=== PATIENT | female | born 1945 | race Caucasian/White ===

== ENCOUNTER 2016-06-27 14:39 | Inpatient (IN) | payer MEDICARE ==
[~2016-06-27] VITALS: Ht 157.5 cm; Wt 51.9 kg
[2016-07-01] MEDS ORDERED: GABA300C5 PO (11:23)
[2016-07-01] MEDS ORDERED: VITA400C59 CHEW (11:23)
[2016-07-01] MEDS ORDERED: FURO20TA PO (11:23)
[2016-07-01] MEDS ORDERED: HYDR-3516 PO (11:23)
[2016-07-01] MEDS ORDERED: LISI-515 PO (11:23)
[2016-07-04] VITALS (8 sets, daily range): BP systolic 85–114; BP diastolic 39–60; PULSE 56–74; RESP 16–18; TEMP 96.8–98.2; O2SAT 99–100
[2016-07-04] MEDS ORDERED: SODIUM CHLORIDE 0.9% IV SCH (06:00)
[2016-07-04] MEDS ORDERED: ceFAZolin 2 GM PREMIX 50 ML IV SCH (06:00)
[2016-07-04] MEDS ORDERED: TRANEXAMIC ACID IV SCH (06:00)
[2016-07-04] MEDS ORDERED: VANCOMYCIN 1000 MG/NS 250 ML (for <70 kg) IV SCH ×2 (06:00)
[2016-07-04] MEDS: CHLORHEXIDINE GLUCONATE 4% SOLN 120 ML BTL TOP SCH (06:00)
[2016-07-04] MEDS: POVIDONE IODINE 7.5% SCRUB 118 ML BOTTLE TOP SCH (06:15)
[2016-07-04] MEDS ORDERED: METOPROLOL TARTRATE 25 MG TAB PO PRN (06:15)
[2016-07-04] MEDS ORDERED: INSULIN HUMAN REGULAR 1,000 UNITS/10 ML VIAL SQ PRN (06:15)
[2016-07-04] MEDS ORDERED: GENTAMICIN SULFATE 80 MG/2 ML VIAL ONE (06:31)
[2016-07-04] MEDS ORDERED: ACETAMINOPHEN 1000 MG/100 ML VIAL IV ONE (06:55)
[2016-07-04] MEDS ORDERED: FAMOTIDINE 20 MG/2 ML VIAL ONE (06:55)
[2016-07-04] MEDS ORDERED: EXPAREL PERI-ARTICULAR INJECTION (TOTAL VOL. 60 ML) P-ARTICULR SCH ×2 (07:00)
[2016-07-04] MEDS ORDERED: TRANEXAMIC PERI-ARTICULAR 3,000 MG/NS 100 ML P-ARTICULR SCH ×2 (07:00)
[2016-07-04] MEDS ORDERED: SODIUM CHLORID 0.9% 500 ML IV SCH (07:00)
[2016-07-04] MEDS ORDERED: LACTATED RINGER'S 1000 ML IV SCH (07:00)
--- NOTE | 2016-07-04 07:14 | EKG ---
Date Performed: 07/04/2016 Time Performed: 06:34:17 PTAGE: 71 years EKG: Sinus rhythm NONSPECIFIC ST & T-WAVE ABNORMALITY BORDERLINE ECG NO PREVIOUS TRACING DOCTOR: Skinny Poe Interpretating Date/Time 07/04/2016 07:14:22
[2016-07-04] MEDS ORDERED: HYDR-3288 PO (07:19)
[2016-07-04] MEDS ORDERED: ENOX40P SQ (07:20)
[2016-07-04] MEDS ORDERED: BISACODYL 10 MG SUPP PR PRN (07:30)
[2016-07-04] MEDS ORDERED: SODIUM CHLORIDE 0.9% FLUSH 5 ML FLUSH IVF PRN (07:30)
[2016-07-04] MEDS ORDERED: ONDANSETRON HCL 4 MG/2 ML VIAL IVP PRN (07:30)
[2016-07-04] MEDS ORDERED: ZOLPIDEM TARTRATE 5 MG TAB PO PRN (07:30)
[2016-07-04] MEDS ORDERED: MORPHINE SULFATE 4 MG/ML INJ IV PUSH PRN (07:30)
[2016-07-04] MEDS ORDERED: NALOXONE HCL 0.4 MG/ML AMP IV PRN (07:30)
[2016-07-04] MEDS ORDERED: ACETAMINOPHEN/HYDROcodone 325 MG/10 MG TAB PO PRN (07:30)
[2016-07-04] MEDS ORDERED: diphenhydrAMINE HCL 50 MG/ML VIAL IV PRN (07:30)
[2016-07-04] MEDS ORDERED: MAGNESIUM HYDROXIDE SUSP 30 ML CUP PO PRN (07:30)
[2016-07-04] MEDS ORDERED: ALUMINUM/MAGNESIUM/SIMETH 30 ML CUP PO PRN (07:30)
[2016-07-04] MEDS ORDERED: FUROSEMIDE 20 MG TAB PO SCH (09:00)
[2016-07-04] MEDS: SODIUM CHLORIDE 0.9% FLUSH 5 ML FLUSH IVF SCH ×2 (09:00→20:56)
[2016-07-04] MEDS ORDERED: Post-op Orders (for Pharmacy) MISC XX ONE (09:11)
[2016-07-04] MEDS ORDERED: *morphine SULFATE 8 MG/ML PERIprocedure ONLY ONE ×3 (09:21→09:43)
[2016-07-04] MEDS ORDERED: fentaNYL CITRATE 250 MCG/5 ML AMP ONE (09:22)
[2016-07-04] MEDS ORDERED: MIDAZOLAM HCL 2 MG/2 ML VIAL ONE (09:22)
[2016-07-04] MEDS ORDERED: MORPHINE SULFATE 4 MG/ML INJ ONE (09:23)
[2016-07-04] MEDS: SODIUM CHLOR 0.9% 1000 ML INJ 1,000 ML IV SCH ×2 (09:28→17:17)
[2016-07-04] MEDS ORDERED: DO NOT ADM ANY ANTICOAGULANT DRUGS XX PRN (09:30)
[2016-07-04] MEDS ORDERED: *hydrOXYzine 25 MG VIAL PERIprocedural Use ONLY IM ONE (09:42)
--- NOTE | 2016-07-04 10:37 | RADRPT ---
EXAM DATE/TIME: 07/04/2016 09:52 [facility] COMPARISON: No previous studies available for comparison. INDICATIONS : Post op right hip. MEDICAL HISTORY : None. SURGICAL HISTORY : None. ENCOUNTER: Initial ACUITY: 1 day PAIN SCORE: 8/10 LOCATION: Right Hip. FINDINGS: The patient is status post a total hip arthroplasty with a bipolar prosthesis. Prosthesis is well-sea philippe. Alignment is anatomic. A fracture is not appreciated. CONCLUSION: Anatomic alignment. Alejandro Lyles MD FACR Board Certified Radiologist. This report was verified electronically.
[2016-07-04] MEDS: ACETAMINOPHEN/HYDROcodone 325 MG/10 MG TAB PO PRN ×2 (11:02→15:12)
[2016-07-04] MEDS ORDERED: ePHEDrine/NS 25 MG/5 ML SYR IV ONE (12:00)
[2016-07-04] MEDS ORDERED: PROPOFOL 200 MG/20 ML AMP IV ONE (12:00)
[2016-07-04] MEDS ORDERED: NEOSTIGMINE 3 MG/3 ML SYR IV ONE (12:00)
[2016-07-04] MEDS ORDERED: PHENYLEPH/NS 1000 MCG/10 ML SYR IV ONE (12:00)
[2016-07-04] MEDS ORDERED: LACTATED RINGER'S 1000 ML INJ 1,000 ML IV ONE (12:00)
[2016-07-04] MEDS ORDERED: ONDANSETRON HCL 4 MG/2 ML VIAL IV PUSH ONE (12:00)
--- NOTE | 2016-07-04 15:13 | PD.CONS ---
[facility] By Dr. Jacome Reason for Consult Medical management Primary Care Physician Jcarlos Bobby M.D. Diagnoses: History of Present Illness The patient is a 71-year-old female with past medical history of hypertension who is presenting to the hospital for an elective right hip repair. The patient says that she was dancing a year ago when she fell down and injured her right hip. She has been following with an orthopedic doctor and she was not satisfied with the care so she sought a second opinion. She has had a trial of steroids as well as physical therapy. Her pain medications she has tried include tramadol and hydrocodone. She has been ambulating with a walker. She has been having if occult A going up and down stairs. She decided to get surgery because her symptoms were not improving. The patient's sister also mentions that the patient has had a 15-20 pound weight loss over the past 8 months. The patient says that she has decreased appetite. She says she has been following up with her routine maintenance such as colonoscopy, breast cancer screening and Pap smears. The patient was seen following surgery and she was having some pain and waiting for pain medication. She also mentions that she has had a chronic cough for a long time. Review of Systems Constitutional: COMPLAINS OF: Weight loss, Change in appetite Ears, nose, mouth, throat: DENIES: Odynophagia Respiratory: COMPLAINS OF: Cough Cardiovascular: COMPLAINS OF: Lower Extremity Edema Gastrointestinal: DENIES: Constipation, Diarrhea Neurologic: COMPLAINS OF: Abnormal gait Past Family Social History Allergies: Coded Allergies: No Known Allergies (Unverified , 07/04/16) Past Medical History Hypertension Active Ordered Medications Current Medications Medications (Trade) Dose Ordered Sig/Deyvi Route Start Time Stop Time Status Last Admin (Betadine 7.5% Scrub) 1 applic ONCE TOP 07/04/16 06:00 07/07/16 05:59 07/04/16 06:15 Chlorhexidine Gluconate 1 applic 1 applic ONCE TOP 07/04/16 06:00 07/07/16 05:59 (Cyklokapron Inj/ NS Inj) 107.755 ml @ 200 mls/ hr ONCE IV 07/04/16 06:00 07/05/16 05:59 07/04/16 07:36 (Lasix) 20 mg BID PO 07/04/16 09:00 Hold (Neurontin) 300 mg HS PO 07/04/16 21:00 Lisinopril 20 mg 20 mg HS PO 07/04/16 21:00 (NS 1000 ml Inj) 1,000 ml @ 100 mls/hr Q10H IV 07/04/16 07:17 07/04/16 09:28 (NS Flush) 2 ml UNSCH PRN IVF 07/04/16 07:30 IV Flush 2 ml 2 ml BID IVF 07/04/16 09:00 (Ancef Inj/NS Inj) 100 ml @ 200 mls/hr Q6H IV 07/04/16 12:00 07/05/16 00:29 07/04/16 11:02 (Lovenox Inj) 40 mg Q24H SQ 07/05/16 08:00 07/14/16 08:01 (Morphine Inj) 3 mg Q3H PRN IV PUSH 07/04/16 07:30 (Berne 10-325 Mg) 1 tab Q4H PRN PO 07/04/16 07:30 07/04/16 11:02 (Berne 10-325 Mg) 2 tab Q6H PRN PO 07/04/16 07:30 (Theragran M Tab) 1 tab BID PO 07/05/16 21:00 09/03/16 20:59 (Zofran Inj) 4 mg Q6H PRN IVP 07/04/16 07:30 (Colace) 100 mg BID PO 07/05/16 21:00 (Mag-Al Plus Susp Liq) 30 ml Q6H PRN PO 07/04/16 07:30 (Ambien) 5 mg HS PRN PO 07/04/16 07:30 (Dulcolax Supp) 10 mg DAILY PRN [place] 07/04/16 07:30 (Milk Of Magnesia Liq) 30 ml DAILY PRN PO 07/04/16 07:30 (Narcan Inj) 0.4 mg UNSCH PRN IV 07/04/16 07:30 (Benadryl Inj) 25 mg Q6H PRN IV 07/04/16 07:30 Miscellaneous Information ALL NURSING DEPARTME... UNSCH PRN XX 07/04/16 09:30 07/05/16 09:29 Family History Hypertension Diabetes Social History The patient does not smoke. She drinks 1-2 randi daily. Physical Exam Vital Signs Vital Signs Date Time Temp Pulse Resp B/P Pulse Ox O2 Delivery O2 Flow Rate FiO2 07/04/16 10:50 97.7 56 16 104/55 100 07/04/16 10:15 97.6 59 12 102/58 99 Nasal Cannula 2 07/04/16 10:00 66 10 104/55 99 07/04/16 09:45 66 7 93/52 99 07/04/16 09:30 80 6 111/62 99 Nasal Cannula 2 07/04/16 09:15 97.6 93 10 102/59 97 Nasal Cannula 2 07/04/16 06:16 98.2 74 16 114/59 100 Physical Exam GENERAL: This is a well-nourished, well-developed patient, in no apparent distress. SKIN: No rashes, ecchymoses or lesions. Cool and dry. HEAD: Atraumatic. Normocephalic. No temporal or scalp tenderness. EYES: Pupils equal round and reactive. Extraocular motions intact. No scleral icterus. No injection or drainage. ENT: Nose without bleeding, purulent drainage or septal hematoma. Throat without erythema, tonsillar hypertrophy or exudate. Uvula midline. Airway patent. NECK: Trachea midline. No JVD or lymphadenopathy. Supple, nontender, no meningeal signs. CARDIOVASCULAR: Regular rate and rhythm without murmurs, gallops, or rubs. RESPIRATORY: Clear to auscultation. Breath sounds equal bilaterally. No wheezes , rales, or rhonchi. GASTROINTESTINAL: Abdomen soft, non-tender, nondistended. No hepato-splenomegaly , or palpable masses. No guarding. MUSCULOSKELETAL: Right hip with bandage in place. Some tenderness to palpation. No hematoma noted. No lower extremity edema. NEUROLOGICAL: Awake and alert. Cranial nerves II through XII intact. Motor and sensory grossly within normal limits. Five out of 5 muscle strength in all muscle groups. Normal speech. PSYCH: Mood and affect appropriate. Laboratory Laboratory Tests Test 07/04/16 06:12 Blood Type O POSITIVE Antibody Screen NEGATIVE Blood Bank Comment Imaging Last Impressions Hip and Pelvis X-Ray 07/04/16 0000 Signed Impressions: Service Date/Time: Monday, July 04, 2016 09:52 - CONCLUSION: Anatomic alignment. Alejandro Lyles MD Assessment and Plan Assessment and Plan Severe osteoarthritis Status post right total hip replacement 1/30/17. - Pain control with a bowel regimen. - Physical therapy. - Incentive spirometry. - Anticoagulation and wound care per orthopedic surgery. Hypertension The patient is on lisinopril and furosemide as an outpatient. - Continue lisinopril. Hold Lasix for now. - Vasotec as needed. Weight loss/ cough Over the past 8 months the patient has endorsed a 15-20 pound weight loss. She says she is current with colonoscopy, mammograms and Pap smears. She also has a chronic cough which she has been unable to correlate with an etiology. - Chest x-ray pending. - Check a TSH level. - Start a PPI in case chronic cough is secondary to GERD. - Will likely need further workup as an outpatient. PPx: Per orthopedic surgery. Discussed Condition With Pt, pt's family. Glynn Ravi DO Jul 04, 2016 15:13
[2016-07-04] MEDS ORDERED: ENALAPRILAT 1.25 MG/ML VIAL IV PUSH PRN (15:15)
[2016-07-04] MEDS: SENNOSIDES 8.6 MG TAB PO SCH (15:15)
--- NOTE | 2016-07-04 16:20 | RADRPT ---
EXAM DATE/TIME: 07/04/2016 15:48 [facility] COMPARISON: No previous studies available for comparison. INDICATIONS : Cough. MEDICAL HISTORY : None. SURGICAL HISTORY : hip replacement today ENCOUNTER: Initial ACUITY: 1 day PAIN SCORE: 0/10 LOCATION: Bilateral chest FINDINGS: A single view of the chest demonstrates the lungs to be symmetrically aerated without evidence of mas s, infiltrate or effusion. The cardiomediastinal contours are unremarkable. Osseous structures are intact. CONCLUSION: No acute disease. Jun Ponce MD on July 04, 2016 at 16:18 Board Certified Radiologist. This report was verified electronically.
--- NOTE | 2016-07-04 17:16 | RADRPT ---
EXAM DATE/TIME: 07/04/2016 07:35 [facility] COMPARISON: No previous studies available for comparison. INDICATIONS : Right total anterior hip arthroplasty. OR. MEDICAL HISTORY : None. SURGICAL HISTORY : None. ENCOUNTER: Initial ACUITY: 1 day PAIN SCORE: Non-responsive. LOCATION: Right hip FINDINGS: Matrix views in the OR reveal placement of total hip prosthesis well seated CONCLUSION: Well-seated total hip prosthesis Odell Bo MD on July 04, 2016 at 17:14 Board Certified Radiologist. This report was verified electronically.
[2016-07-04] MEDS: PANTOPRAZOLE SOD 40 MG DELAYED RELEASE TAB PO SCH (18:07)
[2016-07-04] MEDS: GABAPENTIN 300 MG CAP PO SCH (20:57)
[2016-07-04] MEDS ORDERED: LISINOPRIL 20 MG TAB PO SCH (21:00)
[2016-07-05] VITALS (13 sets, daily range): BP systolic 78–152; BP diastolic 46–69; PULSE 69–94; RESP 17–20; TEMP 95.8–100.6; O2SAT 97–100
[2016-07-05] MEDS ORDERED: SODIUM CHLORID 0.9% 500 ML INJ 500 ML IV ONE (01:00)
[2016-07-05] MEDS: ACETAMINOPHEN 325 MG TAB PO PRN ×2 (01:10→06:41)
[2016-07-05 01:42] LABS: AUTOMATED NEUTROPHIL # 6.7 TH/MM3 (1.8-7.7); BASOPHIL % 0.1 % (0.0-2.0); HEMO FLAGS DIFF FINAL; LYMPH % 10.2 % (9.0-44.0); LYMPHOCYTE # 0.9 TH/MM3 (1.0-4.8); MEAN CELL VOLUME 95.6 FL (80.0-100.0); MEAN CORPUSCULAR HGB CONC 34.5 % (32.0-36.0); MONO % 11.6 % (0.0-8.0); NEUT % 78.1 % (16.0-70.0); PLATELET COUNT 179 TH/MM3 (150-450); RED BLOOD COUNT 2.72 MIL/MM3 (4.00-5.30); WHITE BLOOD COUNT 8.5 TH/MM3 (4.0-11.0)
[2016-07-05 01:52] LABS: APTT (PATIENT) 22.6 SEC (24.3-30.1); INTERNATIONAL NORMALIZED RATIO 0.9 RATIO; PROTHROMBIN TIME - PATIENT 10.3 SEC (9.8-11.6)
[2016-07-05 02:12] LABS: ALT (GPT) 40 U/L (10-53); ANION GAP 7 MEQ/L (5-15); AST (GOT) 43 U/L (15-37); BICARBONATE 25.7 MEQ/L (21.0-32.0); BLOOD UREA NITROGEN 21 MG/DL (7-18); CHLORIDE 107 MEQ/L (98-107); GLOMERULAR FILTRATION RATE 36 ML/MIN (>89); POTASSIUM 4.5 MEQ/L (3.5-5.1); SODIUM (NA) 140 MEQ/L (136-145)
[2016-07-05 02:14] LABS: ALKALINE PHOSPHATASE 84 U/L (45-117); TOTAL BILIRUBIN ADULT 0.6 MG/DL (0.2-1.0)
[2016-07-05] MEDS ORDERED: SODIUM CHLOR 0.9% 1000 ML INJ 1,000 ML IV ONE ×2 (03:15→04:30)
[2016-07-05] MEDS: SODIUM CHLOR 0.9% 1000 ML INJ 1,000 ML IV SCH ×2 (03:17→23:17)
[2016-07-05] MEDS: POVIDONE IODINE 7.5% SCRUB 118 ML BOTTLE TOP SCH (03:22)
[2016-07-05] MEDS: CHLORHEXIDINE GLUCONATE 4% SOLN 120 ML BTL TOP SCH (03:35)
[2016-07-05 05:14] LABS: HEMATOCRIT 22.7 % (35.0-46.0); MEAN CELL VOLUME 95.4 FL (80.0-100.0); MEAN CORPUSCULAR HEMOGLOBIN 33.8 PG (27.0-34.0); MEAN CORPUSCULAR HGB CONC 35.4 % (32.0-36.0); PLATELET COUNT 162 TH/MM3 (150-450); RED BLOOD COUNT 2.38 MIL/MM3 (4.00-5.30); RED CELL DISTRIBUTION WIDTH 12.2 % (11.6-17.2); REVIEW FLAG FINAL; WHITE BLOOD COUNT 8.2 TH/MM3 (4.0-11.0)
[2016-07-05] MEDS ORDERED: ACETAMINOPHEN/HYDROcodone 325 MG/5 MG TAB PO PRN (05:15)
--- NOTE | 2016-07-05 05:25 | RADRPT ---
EXAM DATE/TIME: 07/05/2016 04:55 [facility] COMPARISON: CHEST SINGLE AP, July 04, 2016, 15:48. INDICATIONS : Hypertension. MEDICAL HISTORY : None. SURGICAL HISTORY : Right total hip replacement ENCOUNTER: Initial ACUITY: 1 day PAIN SCORE: 7/10 LOCATION: Bilateral chest FINDINGS: A single view of the chest demonstrates the lungs to be symmetrically aerated without evidence of mas s, infiltrate or effusion. The cardiomediastinal contours are unremarkable. Osseous structures are intact. CONCLUSION: No evidence of acute cardiopulmonary disease. Lewis Matias MD on July 05, 2016 at 5:24 Board Certified Radiologist. This report was verified electronically.
[2016-07-05 05:33] LABS: BICARBONATE 24.5 MEQ/L (21.0-32.0); POTASSIUM 4.1 MEQ/L (3.5-5.1)
[2016-07-05] MEDS ORDERED: ENOXAPARIN SODIUM 40 MG/0.4 ML SYRINGE SQ SCH (08:00)
--- NOTE | 2016-07-05 08:25 | PD.ORT.PN ---
Subjective Post Op Day #: 1 Subjective Remarks painful. patient has been hypotensive and has not had pain meds. Objective Vitals Vital Signs Date Time Temp Pulse Resp B/P Pulse Ox O2 Delivery O2 Flow Rate FiO2 07/05/16 05:10 94/64 07/05/16 04:30 92/50 Manual Cuff/Auscultation 07/05/16 04:15 88/50 07/05/16 02:55 78/46 07/04/16 23:58 90/48 07/04/16 23:30 85/50 07/04/16 22:20 92/46 Automatic Cuff 07/04/16 20:00 96.8 70 16 91/39 100 07/04/16 19:16 99 Nasal Cannula 2.00 07/04/16 16:25 98.0 58 18 105/60 99 07/04/16 10:50 97.7 56 16 104/55 100 07/04/16 10:15 97.6 59 12 102/58 99 Nasal Cannula 2 07/04/16 10:00 66 10 104/55 99 07/04/16 09:45 66 7 93/52 99 07/04/16 09:30 80 6 111/62 99 Nasal Cannula 2 07/04/16 09:15 97.6 93 10 102/59 97 Nasal Cannula 2 I/O 07/04/16 07/04/16 07/04/16 07/05/16 07/05/16 07/05/16 07:00 15:00 23:00 07:00 15:00 23:00 Intake Total 1100 ml 660 ml 2141 ml Output Total 350 ml 1100 ml 800 ml Balance 750 ml -440 ml 1341 ml Intake Oral 360 ml 360 ml IV Total 300 ml 1781 ml Other 1100 ml Output Urine Total 1100 ml 800 ml Estimated Blood Loss 150 ml Other 200 ml # Voids 1 # Bowel Movements 0 0 Result Diagram: 07/05/16 0455 07/05/16 0455 Other Results Laboratory Tests Test 07/05/16 01:18 Prothrombin Time 10.3 SEC (9.8-11.6) Prothromb Time International 0.9 RATIO Ratio Imaging Last 24 hours Impressions Chest X-Ray 07/05/16 0000 Signed Impressions: Service Date/Time: Tuesday, July 05, 2016 04:55 - CONCLUSION: No evidence of acute cardiopulmonary disease. Lewis Matias MD Objective Remarks in bed, mild distress due to pain dressing c/d/i mark evans nvi Assessment & Plan Ortho Post Op Day #: 1 Problem List: Assessment and Plan s/p R LAMAR - anterior approach wbat daily dressing changes lovenox hypotensive - has been receiving saline bolus likely needs transfusion d/c planning home with [facility] and pt rx in chart f/up dr. moreno 2 weeks Jus Andre Jul 05, 2016 08:25
--- NOTE | 2016-07-05 08:27 | HHI.DCPOC ---
Discharge Care Plan Diagnosis: (1) Primary localized osteoarthrosis, pelvic region and thigh Your Health Problems Are: Difficulty with ADL Goals to Promote Your Health * To prevent worsening of your condition and complications * To maintain your health at the optimal level Directions to Meet Your Goals Take your medications as prescribed Follow your dietary instruction Follow activity as directed Keep your appointments as scheduled Take your immunizations and boosters as scheduled If your symptoms worsen call your PCP, if no PCP go to Urgent Care Center or Emergency Room Smoking is Dangerous to Your Health. Avoid second hand smoke Call the 24-hour hour crisis hotline for domestic abuse at Jus Andre Jul 05, 2016 08:27
--- NOTE | 2016-07-05 08:27 | HHI.FF ---
Face to Face Verification Diagnosis: (1) Primary localized osteoarthrosis, pelvic region and thigh Physical Therapy Gait training, Safety evaluation, Transfer training, bed to chair Hip: Total hip, Protocol: Right, Progress to weight bearing Right LE Weight Bearing: WB as tolerated Nursing RN: 3 days/week x 2 weeks Nursing: Андрей teaching, Dressing changes Dressing Changes: Daily dressing change I have seen patient Valerie Ojeda on 07/05/16. My clinical findings support the need for the requested home health care services because: Limited ability to care for self High risk of falls I certify that my clinical findings support that this patient is homebound because: Post-op weakness Unsteady gait/balance Jus Andre Jul 05, 2016 08:27
[2016-07-05] MEDS ORDERED: WALKER WHEELS/F1 MIS (08:29)
[2016-07-05] MEDS ORDERED: MISC-163 (08:29)
--- NOTE | 2016-07-05 09:29 | HHI.PR ---
Subjective Remarks The patient said that she had a lot of pain in her right leg because she has been unable to take pain medications. She says that her blood pressure does not tend to run low. She says she has lost about 30 pounds over the past year unintentionally. She states she has no appetite. She endorses a chronic cough for many years. Discussed with nursing. Objective Vitals Vital Signs Date Time Temp Pulse Resp B/P Pulse Ox O2 Delivery O2 Flow Rate FiO2 07/05/16 08:00 98.2 69 20 108/52 100 07/05/16 05:10 94/64 07/05/16 04:30 92/50 Manual Cuff/Auscultation 07/05/16 04:15 88/50 07/05/16 02:55 78/46 07/04/16 23:58 90/48 07/04/16 23:30 85/50 07/04/16 22:20 92/46 Automatic Cuff 07/04/16 20:00 96.8 70 16 91/39 100 07/04/16 19:16 99 Nasal Cannula 2.00 07/04/16 16:25 98.0 58 18 105/60 99 07/04/16 10:50 97.7 56 16 104/55 100 07/04/16 10:15 97.6 59 12 102/58 99 Nasal Cannula 2 07/04/16 10:00 66 10 104/55 99 07/04/16 09:45 66 7 93/52 99 07/04/16 09:30 80 6 111/62 99 Nasal Cannula 2 I/O 07/04/16 07/04/16 07/04/16 07/05/16 07/05/16 07/05/16 07:00 15:00 23:00 07:00 15:00 23:00 Intake Total 1100 ml 660 ml 2141 ml Output Total 350 ml 1100 ml 800 ml Balance 750 ml -440 ml 1341 ml Intake Oral 360 ml 360 ml IV Total 300 ml 1781 ml Other 1100 ml Output Urine Total 1100 ml 800 ml Estimated Blood Loss 150 ml Other 200 ml # Voids 1 # Bowel Movements 0 0 Result Diagram: 07/05/16 0455 07/05/16 0455 Imaging Last Impressions Chest X-Ray 07/05/16 0000 Signed Impressions: Service Date/Time: Tuesday, July 05, 2016 04:55 - CONCLUSION: No evidence of acute cardiopulmonary disease. Lewis Matias MD Hip and Pelvis X-Ray 07/04/16 0000 Signed Impressions: Service Date/Time: Monday, July 04, 2016 09:52 - CONCLUSION: Anatomic alignment. Alejandro Lyles MD Hip X-Ray 07/04/16 0000 Signed Impressions: Service Date/Time: Monday, July 04, 2016 07:35 - CONCLUSION: Well-seated total hip prosthesis Odell Bo MD Objective Remarks GENERAL: This is a well-nourished, well-developed patient, in no apparent distress. SKIN: No rashes, ecchymoses or lesions. Cool and dry. HEAD: Atraumatic. Normocephalic. No temporal or scalp tenderness. EYES: Pupils equal round and reactive. Extraocular motions intact. No scleral icterus. No injection or drainage. ENT: Nose without bleeding, purulent drainage or septal hematoma. Throat without erythema, tonsillar hypertrophy or exudate. Uvula midline. Airway patent. NECK: Trachea midline. No JVD or lymphadenopathy. Supple, nontender, no meningeal signs. CARDIOVASCULAR: Regular rate and rhythm without murmurs, gallops, or rubs. RESPIRATORY: Clear to auscultation. Breath sounds equal bilaterally. No wheezes , rales, or rhonchi. GASTROINTESTINAL: Abdomen soft, non-tender, nondistended. No hepato-splenomegaly , or palpable masses. No guarding. MUSCULOSKELETAL: Right hip with bandage in place. Some tenderness to palpation. No hematoma noted. No lower extremity edema. NEUROLOGICAL: Awake and alert. Cranial nerves II through XII intact. Motor and sensory grossly within normal limits. Five out of 5 muscle strength in all muscle groups. Normal speech. PSYCH: Mood and affect appropriate. Procedures Right hip arthroplasty 07/04/16. Medications and IVs Current Medications Medications (Trade) Dose Ordered Sig/Deyvi Route Start Time Stop Time Status Last Admin (Betadine 7.5% Scrub) 1 applic ONCE TOP 07/04/16 06:00 07/07/16 05:59 07/04/16 06:15 (Hibiclens 4% Top Soln) 1 applic ONCE TOP 07/04/16 06:00 07/07/16 05:59 (Lasix) 20 mg BID PO 07/04/16 09:00 Hold Gabapentin 300 mg 300 mg HS PO 07/04/16 21:00 (NS 1000 ml Inj) 1,000 ml @ 100 mls/hr Q10H IV 07/04/16 07:17 07/05/16 03:17 (NS Flush) 2 ml UNSCH PRN IVF 07/04/16 07:30 (NS Flush) 2 ml BID IVF 07/04/16 09:00 (Theragran M Tab) 1 tab BID PO 07/05/16 21:00 09/03/16 20:59 (Zofran Inj) 4 mg Q6H PRN IVP 07/04/16 07:30 (Colace) 100 mg BID PO 07/05/16 21:00 (Mag-Al Plus Susp Liq) 30 ml Q6H PRN PO 07/04/16 07:30 (Ambien) 5 mg HS PRN PO 07/04/16 07:30 (Dulcolax Supp) 10 mg DAILY PRN [place] 07/04/16 07:30 (Milk Of Magnesia Liq) 30 ml DAILY PRN PO 07/04/16 07:30 (Narcan Inj) 0.4 mg UNSCH PRN IV 07/04/16 07:30 (Benadryl Inj) 25 mg Q6H PRN IV 07/04/16 07:30 Miscellaneous Information ALL NURSING DEPARTME... UNSCH PRN XX 07/04/16 09:30 07/05/16 09:29 (Senokot) 17.2 mg DAILY PO 07/04/16 15:15 (Vasotec Inj) 1.25 mg Q6H PRN IV PUSH 07/04/16 15:15 (Protonix) 40 mg DAILY PO 07/04/16 16:00 07/04/16 18:07 (Ofirmev Inj) 1,000 mg Q8HR IV 07/05/16 10:00 UNV (Roxicodone) 5 mg Q4H PRN PO 07/05/16 09:15 UNV (Lovenox Inj) 40 mg Q24H SQ 07/05/16 15:00 UNV A/P Assessment and Plan Severe osteoarthritis Status post right total hip replacement 07/04/16. - Pain control with a bowel regimen. - Physical therapy. - Incentive spirometry. - Anticoagulation and wound care per orthopedic surgery. Anticoagulation currently on hold in setting of anemia. Hypotension The pt received multiple fluid boluses and has not been able to get pain medications. Normally has hypertension. May be s/t blood loss. - hold lisinopril and Lasix. - IVFs. - sparing use of pain medications. - check a lactic acid level. - blood transfusion. Anemia Hemoglobin has been decreasing following surgery and pt has been hypotensive. - transfuse 2 units 07/05 and follow CBC. - check B12, folate, iron studies and Hemoccult. - holding Lovenox for now. Weight loss/ cough Over the past 8 months the patient has endorsed a 15-20 pound weight loss. She says she is current with colonoscopy, mammograms and Pap smears. She also has a chronic cough which she has been unable to correlate with an etiology. CXR unremarkable. AST mildly elevated. INR WNL. TSH low normal. - Check free T3/T4. - trend LFTs. - Start a PPI in case chronic cough is secondary to GERD. - Will likely need further workup as an outpatient. - consider CT of the chest. LING Improved with IVFs. - continue IVFs and monitor. - avoid nephrotoxic agents. PPx: Per orthopedic surgery. Discharge Planning Awaiting clinical improvement. Glynn Ravi DO Jul 05, 2016 09:29
[2016-07-05] MEDS: SENNOSIDES 8.6 MG TAB PO SCH (10:05)
[2016-07-05] MEDS: PANTOPRAZOLE SOD 40 MG DELAYED RELEASE TAB PO SCH (10:05)
[2016-07-05] MEDS: SODIUM CHLORIDE 0.9% FLUSH 5 ML FLUSH IVF SCH ×2 (10:06→21:49)
[2016-07-05] MEDS: ACETAMINOPHEN 1000 MG/100 ML VIAL IV SCH ×3 (10:06→23:22)
[2016-07-05 10:19] LABS: HEMATOCRIT 24.8 % (35.0-46.0); REVIEW FLAG FINAL
[2016-07-05 10:25] LABS: TRANSFERRIN IRON PROFILE 162 MG/DL (200-360)
[2016-07-05 10:50] LABS: FERRITIN 233 NG/ML (8-252)
[2016-07-05 11:54] LABS: HEMATOCRIT 25.2 % (35.0-46.0); MEAN CELL VOLUME 97.2 FL (80.0-100.0); MEAN CORPUSCULAR HEMOGLOBIN 32.1 PG (27.0-34.0); PLATELET COUNT 170 TH/MM3 (150-450); RED CELL DISTRIBUTION WIDTH 12.2 % (11.6-17.2); REVIEW FLAG FINAL
[2016-07-05 12:32] LABS: FREE T3 1.94 PG/ML (2.18-3.98); FREE T4 1.29 NG/DL (0.76-1.46)
[2016-07-05 13:45] LABS: HEMATOCRIT 24.6 % (35.0-46.0); REVIEW FLAG FINAL
[2016-07-05] MEDS: ENOXAPARIN SODIUM 40 MG/0.4 ML SYRINGE SQ SCH (15:55)
[2016-07-05 16:55] LABS: HEMOGLOBIN A1a 0.9 %; HEMOGLOBIN A1b 0.8 %; HEMOGLOBIN Ao 86.3 %; HEMOGLOBIN F 0.9 %; HEMOGLOBIN LA1C 2.1 %; HEMOGLOBIN P3 5.2 %
[2016-07-05] MEDS: MORPHINE SULFATE 4 MG/ML INJ IV PUSH PRN ×2 (17:09→21:45)
[2016-07-05] MEDS ORDERED: CELE40TA PO (20:53)
[2016-07-05] MEDS: GABAPENTIN 300 MG CAP PO SCH (21:44)
[2016-07-05] MEDS: MULTIVITAMINS/MINERALS THERAPEUTIC TAB PO SCH (21:44)
[2016-07-05] MEDS: DOCUSATE SODIUM 100 MG CAP PO SCH (21:44)
[2016-07-05] MEDS ORDERED: diphenhydrAMINE HCL 25 MG CAP PO ONE (23:15)
[2016-07-05] MEDS ORDERED: ACETAMINOPHEN 325 MG TAB PO ONE (23:15)
[2016-07-06] VITALS (14 sets, daily range): BP systolic 101–133; BP diastolic 57–69; PULSE 67–98; RESP 16–20; TEMP 95.6–100.1; O2SAT 96–100
[2016-07-06 02:33] LABS: BICARBONATE 24.2 MEQ/L (21.0-32.0)
[2016-07-06 02:36] LABS: INDIRECT BILIRUBIN 0.6 MG/DL (0.0-0.8); TOTAL BILIRUBIN ADULT 0.8 MG/DL (0.2-1.0)
[2016-07-06] MEDS: POVIDONE IODINE 7.5% SCRUB 118 ML BOTTLE TOP SCH (04:35)
[2016-07-06] MEDS: CHLORHEXIDINE GLUCONATE 4% SOLN 120 ML BTL TOP SCH (05:08)
[2016-07-06 07:33] LABS: HEMATOCRIT 32.5 % (35.0-46.0); MEAN CELL VOLUME 93.4 FL (80.0-100.0); MEAN CORPUSCULAR HEMOGLOBIN 31.9 PG (27.0-34.0); MEAN CORPUSCULAR HGB CONC 34.2 % (32.0-36.0); PLATELET COUNT 148 TH/MM3 (150-450); RED BLOOD COUNT 3.49 MIL/MM3 (4.00-5.30); RED CELL DISTRIBUTION WIDTH 14.4 % (11.6-17.2); REVIEW FLAG FINAL; WHITE BLOOD COUNT 8.1 TH/MM3 (4.0-11.0)
--- NOTE | 2016-07-06 08:01 | PD.ORT.PN ---
Subjective Post Op Day #: 2 Subjective Remarks feeling much better this morning. 1 unit PRBC transfused yesterday. Objective Vitals Vital Signs Date Time Temp Pulse Resp B/P Pulse Ox O2 Delivery O2 Flow Rate FiO2 07/06/16 06:24 97.4 87 16 120/64 100 07/06/16 06:22 97.4 82 19 120/64 07/06/16 04:00 96.3 72 16 106/62 100 07/06/16 01:55 99.2 75 19 105/60 99 07/06/16 01:50 97.7 74 18 113/64 99 07/06/16 01:45 98.2 67 20 101/63 100 07/06/16 00:47 99.3 07/06/16 00:30 99.8 07/06/16 00:13 100.1 95 17 133/69 96 07/05/16 22:30 100.6 93 20 141/66 99 07/05/16 19:00 99.3 94 17 152/69 100 07/05/16 16:00 95.8 72 20 105/53 97 07/05/16 13:50 98.5 77 19 108/56 100 07/05/16 13:35 97.6 81 20 97/55 100 07/05/16 12:00 97.6 81 20 97/55 100 07/05/16 10:29 99 Nasal Cannula 2.00 07/05/16 08:00 98.2 69 20 108/52 100 I/O 07/05/16 07/05/16 07/05/16 07/06/16 07/06/16 07/06/16 07:00 15:00 23:00 07:00 15:00 23:00 Intake Total 2141 ml 400 ml 603 ml Output Total 800 ml 1000 ml 600 ml Balance 1341 ml -600 ml 3 ml Intake Oral 360 ml 400 ml 250 ml IV Total 1781 ml Packed Cells 353 ml Output Urine Total 800 ml 1000 ml 600 ml # Bowel Movements 0 0 0 Result Diagram: 07/06/16 0715 07/06/16 0201 Imaging Last 24 hours Impressions Chest X-Ray 07/05/16 0000 Signed Impressions: Service Date/Time: Tuesday, July 05, 2016 04:55 - CONCLUSION: No evidence of acute cardiopulmonary disease. Lewis Matias MD Objective Remarks in bed, nad incision no erythema, no drainage neg homans nvi Assessment & Plan Ortho Post Op Day #: 2 Problem List: Assessment and Plan s/p R LAMAR - anterior approach wbat daily dressing changes lovenox transfused 1 unit PRBC yesterday d/c planning home with [facility] and pt - ortho stable and cleared if cleared by med rx in chart f/up dr. moreno 2 weeks Jus Andre Jul 06, 2016 08:01
[2016-07-06] MEDS: SODIUM CHLORIDE 0.9% FLUSH 5 ML FLUSH IVF SCH ×2 (09:00→20:33)
[2016-07-06] MEDS: SENNOSIDES 8.6 MG TAB PO SCH (09:00)
[2016-07-06] MEDS: MULTIVITAMINS/MINERALS THERAPEUTIC TAB PO SCH ×2 (09:34→20:31)
[2016-07-06] MEDS: DOCUSATE SODIUM 100 MG CAP PO SCH ×2 (09:34→20:31)
[2016-07-06] MEDS: PANTOPRAZOLE SOD 40 MG DELAYED RELEASE TAB PO SCH (09:34)
[2016-07-06] MEDS: SODIUM CHLOR 0.9% 1000 ML INJ 1,000 ML IV SCH ×2 (09:37→19:17)
[2016-07-06] MEDS ORDERED: POLYETHYLENE GLYCOL 17 GM PKG PO ONE (16:15)
--- NOTE | 2016-07-06 16:15 | HHI.PR ---
Subjective Remarks The patient was resting comfortably in bed. She said that her pain was controlled. She denies any shortness of breath. Her family was at the bedside. Her goal is to go home instead of rehabilitation. Discussed with nursing. Objective Vitals Vital Signs Date Time Temp Pulse Resp B/P Pulse Ox O2 Delivery O2 Flow Rate FiO2 07/06/16 11:58 96.9 80 16 115/62 100 07/06/16 11:25 98 Nasal Cannula 2.00 07/06/16 08:00 97.9 83 18 103/57 98 07/06/16 06:24 97.4 87 16 120/64 100 07/06/16 06:22 97.4 82 19 120/64 07/06/16 04:00 96.3 72 16 106/62 100 07/06/16 01:55 99.2 75 19 105/60 99 07/06/16 01:50 97.7 74 18 113/64 99 07/06/16 01:45 98.2 67 20 101/63 100 07/06/16 00:47 99.3 07/06/16 00:30 99.8 07/06/16 00:13 100.1 95 17 133/69 96 07/05/16 22:30 100.6 93 20 141/66 99 07/05/16 19:00 99.3 94 17 152/69 100 I/O 07/05/16 07/05/16 07/05/16 07/06/16 07/06/16 07/06/16 07:00 15:00 23:00 07:00 15:00 23:00 Intake Total 2141 ml 400 ml 603 ml Output Total 800 ml 1000 ml 600 ml Balance 1341 ml -600 ml 3 ml Intake Oral 360 ml 400 ml 250 ml IV Total 1781 ml Packed Cells 353 ml Output Urine Total 800 ml 1000 ml 600 ml # Bowel Movements 0 0 0 Result Diagram: 07/06/16 0715 07/06/16 0201 Imaging Last Impressions Chest X-Ray 07/05/16 0000 Signed Impressions: Service Date/Time: Tuesday, July 05, 2016 04:55 - CONCLUSION: No evidence of acute cardiopulmonary disease. Lewis Matias MD Hip and Pelvis X-Ray 07/04/16 0000 Signed Impressions: Service Date/Time: Monday, July 04, 2016 09:52 - CONCLUSION: Anatomic alignment. Alejandro G. Miles MD Hip X-Ray 07/04/16 0000 Signed Impressions: Service Date/Time: Monday, July 04, 2016 07:35 - CONCLUSION: Well-seated total hip prosthesis Odell Bo MD Objective Remarks GENERAL: This is a well-nourished, well-developed patient, in no apparent distress. SKIN: No rashes, ecchymoses or lesions. Cool and dry. HEAD: Atraumatic. Normocephalic. No temporal or scalp tenderness. EYES: Pupils equal round and reactive. Extraocular motions intact. No scleral icterus. No injection or drainage. ENT: Nose without bleeding, purulent drainage or septal hematoma. Throat without erythema, tonsillar hypertrophy or exudate. Uvula midline. Airway patent. NECK: Trachea midline. No JVD or lymphadenopathy. Supple, nontender, no meningeal signs. CARDIOVASCULAR: Regular rate and rhythm without murmurs, gallops, or rubs. RESPIRATORY: Clear to auscultation. Breath sounds equal bilaterally. No wheezes , rales, or rhonchi. GASTROINTESTINAL: Abdomen soft, non-tender, nondistended. No hepato-splenomegaly , or palpable masses. No guarding. MUSCULOSKELETAL: Right hip with bandage in place. Some tenderness to palpation. No hematoma noted. No lower extremity edema. NEUROLOGICAL: Awake and alert. Cranial nerves II through XII intact. Motor and sensory grossly within normal limits. Five out of 5 muscle strength in all muscle groups. Normal speech. PSYCH: Mood and affect appropriate. Procedures Right hip arthroplasty 07/04/16. Medications and IVs Current Medications Medications (Trade) Dose Ordered Sig/Deyvi Route Start Time Stop Time Status Last Admin (Betadine 7.5% Scrub) 1 applic ONCE TOP 07/04/16 06:00 07/07/16 05:59 07/04/16 06:15 (Hibiclens 4% Top Soln) 1 applic ONCE TOP 07/04/16 06:00 07/07/16 05:59 (Lasix) 20 mg BID PO 07/04/16 09:00 Hold Gabapentin 300 mg 300 mg HS PO 07/04/16 21:00 07/05/16 21:44 (NS 1000 ml Inj) 1,000 ml @ 100 mls/hr Q10H IV 07/04/16 07:17 07/06/16 09:37 (NS Flush) 2 ml UNSCH PRN IVF 07/04/16 07:30 (NS Flush) 2 ml BID IVF 07/04/16 09:00 07/05/16 21:49 (Theragran M Tab) 1 tab BID PO 07/05/16 21:00 09/03/16 20:59 07/06/16 09:34 (Zofran Inj) 4 mg Q6H PRN IVP 07/04/16 07:30 (Colace) 100 mg BID PO 07/05/16 21:00 07/06/16 09:34 (Mag-Al Plus Susp Liq) 30 ml Q6H PRN PO 07/04/16 07:30 (Ambien) 5 mg HS PRN PO 07/04/16 07:30 (Dulcolax Supp) 10 mg DAILY PRN VA 07/04/16 07:30 (Milk Of Magnesia Liq) 30 ml DAILY PRN PO 07/04/16 07:30 (Narcan Inj) 0.4 mg UNSCH PRN IV 07/04/16 07:30 (Benadryl Inj) 25 mg Q6H PRN IV 07/04/16 07:30 (Senokot) 17.2 mg DAILY PO 07/04/16 15:15 07/05/16 10:05 (Vasotec Inj) 1.25 mg Q6H PRN IV PUSH 07/04/16 15:15 (Protonix) 40 mg DAILY PO 07/04/16 16:00 07/06/16 09:34 (Roxicodone) 5 mg Q4H PRN PO 07/05/16 09:15 07/06/16 06:27 (Lovenox Inj) 40 mg Q24H SQ 07/05/16 15:00 07/05/16 15:55 (Roxicodone) 10 mg Q4H PRN PO 07/05/16 16:15 07/06/16 13:59 (Morphine Inj) 2 mg Q3H PRN IV PUSH 07/05/16 16:15 07/05/16 21:45 A/P Assessment and Plan Severe osteoarthritis Status post right total hip replacement 07/04/16. - Pain control with a bowel regimen. Add Miralax. - Physical therapy. - Incentive spirometry. - Anticoagulation and wound care per orthopedic surgery. Hypotension The pt received multiple fluid boluses and has not been able to get pain medications. Normally has hypertension. May be s/t blood loss. Improved following IVFs and blood transfusion. Lactic acid now normal. - hold lisinopril and Lasix. - s/p IVFs. Anemia Hemoglobin has been decreasing following surgery and pt has been hypotensive. Transfused 2 units 07/05. CBC improved and stable. - follow CBC and transfuse as needed. - check a Hemoccult. Weight loss/ cough Over the past 8 months the patient has endorsed a 15-20 pound weight loss. She says she is current with colonoscopy, mammograms and Pap smears. She also has a chronic cough which she has been unable to correlate with an etiology. CXR unremarkable. INR WNL. TSH low normal. - Start a PPI in case chronic cough is secondary to GERD. - Will likely need further workup as an outpatient. - consider CT of the chest. LING Improved with IVFs. - avoid nephrotoxic agents. PPx: Per orthopedic surgery. Discharge Planning Per primary. Glynn Ravi DO Jul 06, 2016 16:15
[2016-07-06] MEDS: ENOXAPARIN SODIUM 40 MG/0.4 ML SYRINGE SQ SCH (17:12)
[2016-07-06] MEDS: GABAPENTIN 300 MG CAP PO SCH (20:31)
[2016-07-07 00:40] VITALS: BP 162/72; PULSE 85; RESP 17; TEMP 97.6; O2SAT 98
[2016-07-07 03:20] VITALS: BP 120/64; PULSE 64; RESP 16; TEMP 98; O2SAT 97
[2016-07-07] MEDS: SODIUM CHLOR 0.9% 1000 ML INJ 1,000 ML IV SCH (05:17)
[2016-07-07 05:50] LABS: HEMATOCRIT 30.6 % (35.0-46.0); MEAN CELL VOLUME 93.3 FL (80.0-100.0); MEAN CORPUSCULAR HGB CONC 34.4 % (32.0-36.0); PLATELET COUNT 166 TH/MM3 (150-450); RED BLOOD COUNT 3.28 MIL/MM3 (4.00-5.30); REVIEW FLAG FINAL
[2016-07-07 06:12] LABS: BICARBONATE 25.6 MEQ/L (21.0-32.0); POTASSIUM 3.9 MEQ/L (3.5-5.1)
[2016-07-07 06:50] VITALS: PULSE 84
[2016-07-07 08:02] VITALS: BP 105/62; PULSE 92; RESP 18; TEMP 98.7; O2SAT 96
--- NOTE | 2016-07-07 08:02 | PD.ORT.PN ---
Subjective Post Op Day #: 3 Subjective Remarks feeling much better this morning. more comfortable with ambulation. Objective Vitals Vital Signs Date Time Temp Pulse Resp B/P Pulse Ox O2 Delivery O2 Flow Rate FiO2 07/07/16 03:20 98.0 64 16 120/64 97 07/07/16 00:40 97.6 85 17 162/72 98 07/06/16 19:40 95.6 98 17 126/67 98 07/06/16 17:56 Nasal Cannula 2.00 07/06/16 16:00 99.0 86 18 132/65 99 07/06/16 11:58 96.9 80 16 115/62 100 07/06/16 11:25 98 Nasal Cannula 2.00 I/O 07/06/16 07/06/16 07/06/16 07/07/16 07/07/16 07/07/16 07:00 15:00 23:00 07:00 15:00 23:00 Intake Total 603 ml 600 ml 480 ml 240 ml Output Total 600 ml 950 ml Balance 3 ml -350 ml 480 ml 240 ml Intake Oral 250 ml 600 ml 480 ml 240 ml Packed Cells 353 ml Output Urine Total 600 ml 950 ml # Voids 3 1 # Bowel Movements 0 0 0 0 Result Diagram: 07/07/16 0501 07/07/16 0501 Imaging Last 24 hours Impressions Chest X-Ray 07/05/16 0000 Signed Impressions: Service Date/Time: Tuesday, July 05, 2016 04:55 - CONCLUSION: No evidence of acute cardiopulmonary disease. Lewis Matias MD Objective Remarks in bed, nad dressing c/d/i neg homans nvi Assessment & Plan Ortho Post Op Day #: 3 Problem List: Assessment and Plan s/p R LAMAR - anterior approach wbat daily dressing changes lovenox d/c planning home with [facility] and pt - ortho stable and cleared for d/c today rx in chart f/up dr. moreno 2 weeks Jus Andre Jul 07, 2016 08:02
[2016-07-07 08:17] VITALS: O2SAT 98
[2016-07-07] MEDS: SODIUM CHLORIDE 0.9% FLUSH 5 ML FLUSH IVF SCH (09:00)
[2016-07-07] MEDS: SENNOSIDES 8.6 MG TAB PO SCH (09:13)
[2016-07-07] MEDS: MULTIVITAMINS/MINERALS THERAPEUTIC TAB PO SCH (09:13)
[2016-07-07] MEDS: PANTOPRAZOLE SOD 40 MG DELAYED RELEASE TAB PO SCH (09:13)
[2016-07-07] MEDS: DOCUSATE SODIUM 100 MG CAP PO SCH (09:13)
--- NOTE | 2016-07-07 10:15 | MP ---
cc: RENAE BLANCA DATE OF SURGERY: 07/04/2016 PREOPERATIVE DIAGNOSIS: Right hip osteoarthritis. POSTOPERATIVE DIAGNOSIS: Right hip osteoarthritis. OPERATION: Right total hip arthroplasty. SURGEON Dr. Renae Blanca. INSECTICIDE MIXER: JOSE Lennon ANESTHESIA General. ESTIMATED BLOOD LOSS: 100 cc. COMPLICATIONS NONE. IMAGING STUDIES DePuy [employer]. Size 13 Press-Fit standard offset femoral stem size 50 pinnacle Jonathan cup size 32 mm ceramic head size 32 x 50 mm neutral highly cross-linked polyethylene liner size +1 neck. JUSTIFICATION: This patient is a 71-year-old female with history of severe end-stage degenerative osteoarthritis involving the right hip. She has severe disabling pain standing, walking ambulation with activities even severe pain at rest. She has failed greater than 3 months of nonoperative conservative including medications, physical therapy, ambulatory assistive aids, size program, activity modification. The patient not overweight. X-RAYS Right hip reveal severe end-stage osteoarthritis with [id number] joint space narrowing, subchondral sclerosis, subchondral cyst osteophyte formation and subluxation. The patient counseled as and alternatives to a total hip arthroplasty. The risks and benefits include but limited to bleeding, infection damage to nerves, blood vessels, continued pain and leg length discrepancies, dislocations, blood clots, pulmonary embolism, even . The patient's pain is severe. She favored the benefits over the risks and wished to surgery. A written consent obtained. The patient identified by name, taken to the supine on the general anesthesia administered as well as 2 grams of IV Ancef and 1 gram of IV vancomycin. The right left feet were placed in the padded traction boots. All bony prominences and pressure as well padded. The right hip and right lower extremity and draped using as alcohol, Hibiclens solution and Chloraprep solution after appropriate time-out was performed a large incision made over the anterolateral aspect of right hip. The fascial layer was incised. Dissection carried over tensor fascia neri with the rectus femoris to allow exposure of injury to allow exposure of the anterior capsule. Capsulotomy incision was performed and the capsule was incised and tagged with #2 FiberWire suture. Oscillating saw was used to perform a femoral neck cut. The femoral head, and neck component was removed with severe arthritis. A 10 blade scalpel was used to excise the labrum. Sequential reaming up size 43 was carried through size 50. Subsequently a pinnacle size 50 cup was implanted in approximately 45 degrees of abduction and 10 degrees anteversion. The patient has severe osteoporosis of bone and I needed to supplement fixation of the cup with screw fixation at this point to a flexible drill was then used to drill and placement of a 6.5 x 35 mm screw was placed in the posterior super quadrant. There is good first purchase and fixation. After insertion of the screw but again the patient has had severe osteoporosis of bone and I supplemented with a second screw measuring 6.5 x 12 mm. The posterior quadrant. At this point screw hole eliminator was placed, followed by the neutral liner. The liner was impacted in place and tested for stability. Attention was turned femur where the leg was externally rotated extended and Adducted. A box cutting osteotome was used to gain entrance in the intramedullary canal and femur, this was followed by canal finder. The capsule was further released off the inner surface of the greater trochanter to allow for elevation lateralization of the femur. Sequential broaching beginning at size 8 was carried through to size 13. This was followed by calcar planer and subsequently, size 13 Press-Fit femoral stem was implanted with excellent purchase and fixation. Trial head neck combination were evaluated and final +1 neck 32 mm ceramic head was placed and the leg could be easily reduced with no significant tightness of the soft tissue abductor musculature. The leg could be externally rotated 70 degrees, extended all the down to the ground but without evidence of dislocation or anterior instability. Fluoroscopic imaging confirmed appropriate implantation of components. The surgical wounds thoroughly irrigated sterile saline solution. The fascia was closed with #1 Vicryl suture. The site 2-0 Vicryl suture. Skin was closed Dermabond. Sterile dressing applied. The patient on procedure with no intraoperative his noted. Jewel Andre physician service assistant was present during the entire procedure to include patient positioning, procedure itself, medical necessity of physician service assistant indicated seen laxity assisted with manipulation leg also traction muscle tendon bone neurovascular structure. He assisted both preparation of bone and implantation of the prosthetic replacement. MD ARIANA Goodrich/martha /8:57 AM /9:56 AM
--- NOTE | 2016-07-12 10:38 | MD ---
cc: RENAE BLANCA ADMISSION DATE: 07/04/2016 DISCHARGE DATE: 07/07/2016 ADMISSION DIAGNOSIS Severe degenerative osteoarthritis right hip. DISCHARGE DIAGNOSIS Severe degenerative osteoarthritis right hip. HISTORY OF PRESENT ILLNESS Mrs. Ojeda is a 71-year-old female who presented to the [facility] for evaluation by Dr. Renae Blanca regarding her severe and progressive right hip pain. The patient states the pain has been progressive for greater than one year for which she has been treated for this ailment. She notes over the last several months it has become severe and constant. It is inhibiting her activities of daily living. She states she has constant severe aching sensation that is aggravated by any type of weightbearing activity. She has no significant alleviating factors at this point, although in the past she has tried medications, assistive devices, physical therapy and even cortisone. The patient is not overweight. She does have x-ray evidence of severe degenerative osteoarthritis of the right hip. While in the office the patient was counseled on her diagnosis and treatment options. The risks, benefits and indications were discussed in great detail. The patient did elect to proceed with surgical intervention to include a right total hip arthroplasty. DATE OF SURGERY 07/04/2016 PROCEDURE PERFORMED Right total hip arthroplasty anterior approach. POSTOP After surgery the patient was admitted to [facility] where she received appropriate medical management, pain control, DVT prophylaxis as well as physical therapy. DISCHARGE Once being discharged from the hospital, the patient is cleared to go home where she will receive home health care and home physical therapy. She is stable condition. She can weight-bear as tolerated with anterior hip precautions. She has been provided prescriptions for pain control as well as DVT prophylaxis medication. She has been instructed on proper wound care management and is to receive daily dressing changes. The patient has been also been provided a follow-up appointment to see Dr. Renae Blanca in the office in approximately two weeks from her date of surgery. The patient has asked appropriate questions which have been answered. The patient is cleared for discharge. Dictated by: Jewel Andre PA-C MD ARIANA Goodrich/DOUGLAS /8:02 AM /10:36 AM
== END 2016-07-07 11:48 | disposition home health service (06) | DRG 470 ==
LOC: HSDI 07-04 05:36 → N06A 07-04 10:51
PROVIDERS: ADMIT Orthopaedic Surgery Sports Medicine; ATTEND Orthopaedic Surgery Sports Medicine
PROC: 0SR904A Replacement of Right Hip Joint with Ceramic on Polyethylene Synthetic Substitute, Uncemented, Open Approach (ICD-10-PCS; principal; 2016-07-04 07:13)
PROC: 30233N1 Transfusion of Nonautologous Red Blood Cells into Peripheral Vein, Percutaneous Approach (ICD-10-PCS; 2016-07-05)
DX: M16.11 Unilateral primary osteoarthritis, right hip (principal); N17.9 Acute kidney failure, unspecified; I95.9 Hypotension, unspecified; R63.0 Anorexia; M81.0 Age-related osteoporosis without current pathological fracture; I10 Essential (primary) hypertension; R63.4 Abnormal weight loss; R05 Cough; D64.9 Anemia, unspecified; Z68.20 Body mass index [BMI] 20.0-20.9, adult
CPT/HCPCS: 36430; 71010; 73502; 76000; 76937; 80048; 80053; 80076; 82607; 82728; 82746; 83036; 83540; 83550; 83605; 84439; 84443; 84481; 85014; 85018; 85025; 85027; 85610; 85730; 86850; 86900; 86901; 86920; 93005; 94150; C1776; C9290; J0131; J0690; J1580; J1650; J2250; J2270; J2370; J2405; J2710; J3010; J3370; J3410; J7030; J7040; J7050; J7120; P9016